=== PATIENT | female | born 1990 | race Caucasian/White ===

== ENCOUNTER 2017-10-02 20:17 | Inpatient (IN) | payer BC ==
[~2017-10-02] VITALS: Ht 165.1 cm; Wt 60.8 kg
[2017-10-02 20:18] VITALS: BP 155/87
--- NOTE | 2017-10-02 20:45 | NUR ---
TO ER BED 11
--- NOTE | 2017-10-02 21:01 | NUR ---
Patient being evaluated by at bedside.
--- NOTE | 2017-10-02 21:02 | NUR ---
27Y/F PT. PRESENTS TO ED WITH C/O ABDOMINAL PAIN X2 DAYS. ALSO STATES N/V, NO DIARRHEA. NO MEDICAL HX. AAO X4, AMBULATORY WITH STAEDY GAIT. RESPIRATIONS ROOM AIR, EVEN AND UNLABORED. SKIN WARM AND DRY. ABDOMEN SOFT AND NON-TENDER, C/O PAIN 10/. VSS, ER MD MADE AWARE OF PT. STATUS.
[2017-10-02] MEDS ORDERED: NACL 0.9% 1,000 ML IV ONE (21:04)
[2017-10-02] MEDS ORDERED: ONDANSETRON 4 MG/2 ML VIAL IVP ONE (21:05)
[2017-10-02] MEDS ORDERED: KETOROLAC 30 MG/ML VIAL IVP ONE (21:05)
--- NOTE | 2017-10-02 21:15 | NUR ---
PT. TAKEN TO CT
[2017-10-02 21:26] LABS: BASOPHILS # (AUTO) 0.6 K/uL (0.00-0.22); EOSINOPHILS # (AUTO) 0.2 K/uL (0-0.4); EOSINOPHILS % (AUTO) 1.1 % (0.0-4.0); HEMATOCRIT 35.7 % (36-48); HEMOGLOBIN 12.3 g/dL (12.0-16.0); LYMPHOCYTES # (AUTO) 0.8 K/uL (2.5-16.5); LYMPHOCYTES % (AUTO) 3.9 % (20.5-51.1); MEAN CORPUSCULAR HEMOGLOBIN 33 pg (27-31); MEAN CORPUSCULAR HGB CONC 35 g/dL (33-37); MEAN CORPUSCULAR VOLUME 96 fL (80-94); MONOCYTES # (AUTO) 0.6 K/uL (0.8-1.0); NEUTROPHILS # (AUTO) 17.2 K/uL (1.8-7.7); PLATELET COUNT (AUTO) 254 K/uL (140-450); RED BLOOD CELL COUNT(AUTO) 3.73 MIL/uL (4.20-5.40); WHITE BLOOD COUNT (AUTO) 19.4 K/uL (4.8-10.8)
--- NOTE | 2017-10-02 21:30 | NUR ---
PT. BACK FROM CT
[2017-10-02 21:37] LABS: APPEARANCE,URINE SL CLOUDY (CLEAR); BILIRUBIN,URINE NEGATIVE (NEGATIVE); BLOOD, URINE 3+ (NEGATIVE); COLOR,URINE YELLOW (YELLOW); LEUKOCYTE ESTERASE ,URINE 1+ (NEGATIVE); NITRITE, URINE NEGATIVE (NEGATIVE); UGLUCOSE NEGATIVE (NEGATIVE)
[2017-10-02 21:40] LABS: ALBUMIN 3.4 g/dL (3.4-5.0); ANION GAP 14.2 (8-16); CARBON DIOXIDE 23.5 mmol/L (21-32); CREATININE 0.8 mg/dL (0.6-1.3); POTASSIUM 3.7 mmol/L (3.5-5.1); TOTAL BILIRUBIN 0.5 mg/dL (0.0-1.0)
[2017-10-02 21:40] LABS: RBC,URINE 3-10 (FEW) /HPF (0-5); WBC,URINE TOO MANY TO COUNT /HPF (0-5)
[2017-10-02] MEDS ORDERED: MORPHINE SULFATE 2 MG/ML SYR IVP ONE (22:35)
[2017-10-02] MEDS: NACL 0.9% 1,000 ML IV SCH (22:44)
[2017-10-02] MEDS ORDERED: HYDROcodone/APAP 7.5/325 MG 1 TAB PO PRN (22:45)
[2017-10-02] MEDS ORDERED: cefTRIAXone 1,000 MG VIAL ONE (22:47)
--- NOTE | 2017-10-02 22:53 | NUR ---
EKG NOT DONE, PATIENT STILL IN ER
--- NOTE | 2017-10-02 23:00 | NUR ---
Patient will be admitted to care of . Admited to TELEMETRY. Will go to [id number]. Belongings list completed. Report to [facility].
[2017-10-02 23:06] LABS: PROTHROMBIN TIME 9.5 secs (10.8-13.4)
[2017-10-02 23:06] LABS: BARBITURATE, URINE NEG. ng/ml (NEG <=200); BENZODIAZEPINE, URINE NEG. ng/mL (NEG <=200); CANNABINOID, URINE POS. ng/mL (NEG <=50); COCAINE, URINE NEG. ng/mL (NEG <=300); OPIATE, URINE NEG. ng/mL (NEG <=2000); PHENCYCLIDINE SCREEN,URINE NEG. ng/mL (NEG <=25)
--- NOTE | 2017-10-02 23:10 | NUR ---
PT ARRIVED FROM ER VIA GURNEY. PT IA AWAKE, ALERT, ORIENTED X4, ON ROOM AIR. IV ACCESS IS PATENT AND ASYMPTOMATIC. NO SIGNS OF ACUTE DISTRESS. BOYFRIEND AT BEDSIDE. PLAN OF CARE DISCUSSED, PT VERBALIZED UNDERSTANDING. BED IN LOW POSITION, BILATERAL HALF SIDE RAILS UP, CALL LIGHT WITHIN REACH, WILL CONTINUE TO MONITOR.
[2017-10-02 23:15] LABS: CHOL/HDL RATIO 1.9 (1-4.5); FREE T4 (FREE THYROXINE) 0.82 ng/dL (0.76-1.46); MAGNESIUM 1.8 mg/dL (1.8-2.4); PHOSPHORUS 1.8 mg/dL (2.5-4.9); THYROID STIMULATING HORMONE 1.21 uIU/mL (0.34-3.74)
[2017-10-02] MEDS ORDERED: MORPHINE SULFATE 2 MG/ML SYR IVP PRN (23:30)
[2017-10-02] MEDS ORDERED: NORE0.3520 PO (23:34)
[2017-10-02] MEDS ORDERED: LORazepam 2 MG/ML VIAL IM/IVP PRN (23:35)
[2017-10-02] MEDS: ACETAMINOPHEN 325 MG TAB PO PRN (23:35)
--- NOTE | 2017-10-02 23:36 | NUR ---
PT STATES SHE HAS A HEADACHE. TYLENOL 650MG GIVEN FOR HEADACHE. PT TOLERATED WELL, WILL CONTINUE TO MONITOR.
[2017-10-03] VITALS (7 sets, daily range): BP systolic 105–127; BP diastolic 59–72
[2017-10-03] MEDS ORDERED: VENL150C1 PO ×2 (00:05→10:49)
[2017-10-03] MEDS: LACTOBACILLUS RHAMNOSUS GG 1 EACH CAP PO SCH ×2 (00:32→08:04)
[2017-10-03] MEDS ORDERED: HYDROmorphone 1 MG/ML AMP IVP SCH (01:30)
[2017-10-03] MEDS: ACETAMINOPHEN 325 MG TAB PO PRN ×2 (04:20→14:12)
--- NOTE | 2017-10-03 04:21 | NUR ---
PT ORAL TEMPERATURE IS 100.9 FAHRENHEIT. PT WAS GIVEN ACETAMINOPHEN 650MG AND COOLING MEASURES. PT TOLERATED WELL. WILL REASSESS AND CONTINUE TO MONITOR.
--- NOTE | 2017-10-03 05:24 | NUR ---
REASSESSED PT ORAL TEMPERATURE, IT'S NOW 100.0 FAHRENHEIT. PT SHOWS NO SIGNS OF ACUTE DISTRESS, WILL CONTINUE TO MONITOR.
--- NOTE | 2017-10-03 06:17 | NUR ---
PT STATES SHE STILL HAS A HEADACHE, NOT RELIEVED BY PAIN MEDS. ASKED TO SPEAK TO DR. MANZO. NOTIFIED DR. MANZO.
[2017-10-03] MEDS: NACL 0.9% 1,000 ML IV SCH ×3 (06:30→21:39)
--- NOTE | 2017-10-03 07:10 | NUR ---
ENDORSED PT TO AM NURSE FOR CONTINUITY OF CARE. PT IN STABLE CONDITION.
--- NOTE | 2017-10-03 07:30 | NUR ---
RECEIVED PT IN BED. AWAKE. ALERT ORIENTEDX4. BOYFRIEND AT BEDSIDE. NO SOB NOTED. COMPLAINS OF PAIN 08/08, AND WOULD WANT TO SEE THE DOCTOR. PT AMBULATORY. SAFETY PRECAUTION IN PLACE. CALL LIGHT WITHIN REACH. WILL LET MD KNOW.
--- NOTE | 2017-10-03 07:39 | NUR ---
DR. ADAM MADE AWARE THAT PT COMPLAINS OF HEADACHE 08/08 AND THE PAIN MEDICATION DILAUDID THAT WAS GIVEN AT NIGHT WASN'T EFFECTIVE PER PT REPORT. PT VERBALIZED SHE DOESN'T HAVE ABDOMINAL PAIN ANYMORE BUT ITS JUST THE HEADACHE THAT BOTHERS HER NOW. DR. ADAM TO SEE PT.
[2017-10-03 07:52] LABS: CARBON DIOXIDE 22.7 mmol/L (21-32); CREATININE 0.9 mg/dL (0.6-1.3); POTASSIUM 3.7 mmol/L (3.5-5.1)
[2017-10-03 07:54] LABS: HEMATOCRIT 30.9 % (36-48); HEMOGLOBIN 10.7 g/dL (12.0-16.0); MEAN CORPUSCULAR HEMOGLOBIN 33 pg (27-31); MEAN CORPUSCULAR HGB CONC 35 g/dL (33-37); MEAN CORPUSCULAR VOLUME 95 fL (80-94); PLATELET COUNT (AUTO) 234 K/uL (140-450); RED BLOOD CELL COUNT(AUTO) 3.25 MIL/uL (4.20-5.40); RED CELL DISTRIBUTION WIDTH 12.2 % (11.6-13.7); WHITE BLOOD COUNT (AUTO) 17.5 K/uL (4.8-10.8)
[2017-10-03] MEDS ORDERED: SUMAtriptan 25 MG TAB PO SCH (07:55)
[2017-10-03 07:59] LABS: MAGNESIUM 1.5 mg/dL (1.8-2.4); PHOSPHORUS 2.2 mg/dL (2.5-4.9)
[2017-10-03 08:00] LABS: LYMPHOCYTES % (MANUAL) 6 % (20-46); MONOCYTES % (MANUAL) 4 % (5-12)
[2017-10-03] MEDS: THIAMINE 100 MG TAB PO SCH (08:04)
[2017-10-03] MEDS: FOLIC ACID 1 MG TAB PO SCH (08:04)
[2017-10-03] MEDS: MULTIVITAMIN 1 TAB PO SCH (08:05)
[2017-10-03] MEDS: DOCUSATE SODIUM 100 MG GELCAP PO SCH ×2 (08:05→21:39)
--- NOTE | 2017-10-03 08:15 | NUR ---
RECEIVED CALL FROM PHARMACY REGARDING EFFEXOR ORDER PER PT SHE TAKES 100 MG. PER PHARMACY WE DON'T HAVE 100 MG FOR THE SAID MEDICATION. FAMILY OF PT TO BRING MEDICATION.
[2017-10-03] MEDS: ONDANSETRON 4 MG/2 ML VIAL IVP PRN ×2 (08:26→13:47)
[2017-10-03] MEDS: KETOROLAC 30 MG/ML VIAL IVP PRN ×2 (08:26→17:52)
--- NOTE | 2017-10-03 08:26 | NUR ---
PT HAD VOMITING, YELLOWISH IN COLOR WITH FOOD PARTICLES. MEDICATED PRN ZOFRAN ORDERED.
--- NOTE | 2017-10-03 08:45 | NUR ---
DR. ADAM MADE AWARE THAT PT HAD AN EPISODE OF VOMITING.
[2017-10-03] MEDS ORDERED: VENLAFAXINE XR 75 MG CAPER PO SCH ×2 (09:00→10:59)
[2017-10-03] MEDS ORDERED: NORETHINDRONE 0.35 MG PO SCH (09:00)
--- NOTE | 2017-10-03 09:00 | NUR ---
AFTER TORADOL IVP WAS GIVEN PRN ORDERED FOR PAIN 05/08. PT VERBALIZED SHE STARTS TO HAVE SOME RELIEF. PT WITH BOYFRIEND AT BEDSIDE. PT CALM, IN BED. TRYING TO GET SOME SLEEP.
[2017-10-03] MEDS ORDERED: MAG SULF 2000 MG/WATER PREMIX 50 ML IV SCH (09:30)
--- NOTE | 2017-10-03 11:54 | NUR ---
PT VERBALIZED HER HEADACHE AND ABDOMINAL PAIN IS STARTING TO COME BACK UP AGAIN AND ITS 7. MEDICATED PRN MORPHINE IVP FOR 06/07 PAIN. SOME VISITORS AT BEDSIDE. PT INTERACTING WITH VISITORS. NO SOB NOTED NO SYMPTOMS OF ACUTE DISTRESS NOTED AT THIS TIME.
--- NOTE | 2017-10-03 13:54 | NUR ---
PT HAVING SOME VOMITING EPISODES AGAIN. VERBALIZED SHE IS IN A LOT OF PAIN AND THE PAIN MEDICATION DIDN'T HELP HER MUCH WITH HER HEADACHE. DR. ADAM MADE AWARE AND CAME TO SEE PT.
--- NOTE | 2017-10-03 13:58 | NUR ---
DR. ADAM CAME TO SEE PT, AND WILL PUT IN AN ORDER FOR DILAUDID AND SAID TO GIVE TYLENOL ORDERED WELL. BECAUSE PT HAVING SOME CHILLS. WILL CHECK VITAL SIGNS AND WILL MEDICATE ORDERED. AND WILL FOLLOW UP WITH CT SCAN OF HEAD WITHOUT CONTRAST.
[2017-10-03] MEDS: HYDROmorphone 1 MG/ML AMP IVP PRN ×2 (14:13→21:46)
--- NOTE | 2017-10-03 14:17 | NUR ---
FOLLOWED UP WITH RADIOLOGY DEPT FOR CT SCAN OF HEAD WITHOUT CONTRAST SPOKE WITH MARGARET. SHE SAID THAT THE TECH WILL BE HERE IN A LITTLE BIT.
--- NOTE | 2017-10-03 14:31 | NUR ---
RECEIVED A CALL FROM [facility] REGARDING NORETHINDRON 0.35MG HOME MED OF PT IF PT'S FAMILY CAN BRING PT'S OWN MED. ASKED PT AND SHE SAID SHE WILL NOT BE TAKING THAT MEDICATION THIS WEEK. PHARMACIST MADE AWARE.
--- NOTE | 2017-10-03 14:43 | NUR ---
RECEIVED A CALL FROM [facility] FROM LAB, FOR A SECOND LACTIC ACID ORDER FOR PT IS QUALIFIED FOR SEVER SEPSIS. DR. ADAM MADE AWARE AND TO PUT AN ORDER.
--- NOTE | 2017-10-03 14:52 | NUR ---
PER PT. THE DILAUDID HELPED WITH HER ABDOMINAL PAIN BUT NOT THE HEADACHE. FOLLOWED UP WITH CT SCAN OF HEAD.
--- NOTE | 2017-10-03 15:30 | NUR ---
MARTELL FROM RADIOLOGY DEPT CAME TO MAILING MANAGER PT FOR CT SCAN OF HEAD WITHOUT CONTRAST.
--- NOTE | 2017-10-03 15:57 | NUR ---
PT CAME BACK FROM CT SCAN.
[2017-10-03] MEDS: SODIUM PHOS / POTASSIUM PHOS 1 PKT PDR PO SCH (16:35)
--- NOTE | 2017-10-03 16:52 | NUR ---
X-RAY TECH SADIE CAME TO MATE RELIEF PT FOR XRAY OF CERVICAL SPINE. PT AWARE.
--- NOTE | 2017-10-03 17:10 | NUR ---
PT CAME BACK FROM XRAY ON STABLE CONDITION.
--- NOTE | 2017-10-03 17:48 | NUR ---
DR. ADAM MADE AWARE THAT PT HAS BEEN THROWING UP. AND NOT ABLE TO TOLERATE REGULAR DIET. MD TO SEE PT AND PUT IN AN ORDER.
--- NOTE | 2017-10-03 18:32 | NUR ---
PT KEPT CLEAN, DRY, AND COMFORTABLE, NEEDS ATTENDED. FAMILY AT BEDSIDE. NO SOB NOTED. PAIN ON ABDOMEN SUBSIDING. WILL ENDORSE TO NEXT SHIFT, PT ON STABLE CONDITION, FOR CONTINUITY OF CARE.
[2017-10-03] MEDS ORDERED: diphenhydrAMINE 50 MG/ML VIAL IVP SCH (18:50)
[2017-10-03] MEDS ORDERED: METOCLOPRAMIDE 10 MG/2 ML INJ VIAL IVP SCH (18:50)
--- NOTE | 2017-10-03 19:35 | NUR ---
RECEIVED REPORT FROM AM NURSE. PT IS RESTING IN BED, FAMILY AT BEDSIDE. ON ROOM AIR. IV ACCESS IS INTACT, PATENT, AND ASYMPTOMATIC, RUNNING NS. NO SIGNS OF ACUTE DISTRESS, BOWEL SOUNDS ACTIVE ON ALL FOUR QUADRANTS. SKIN COLOR APPROPRIATE TO ETHNICITY, PT DENIES ANY PAIN AT THIS TIME. PT IS AMBULATORY WITH BP. PLAN OF CARE DISCUSSED, PT VERBALIZED UNDERSTANDING. BED IN LOW POSITION, BILATERAL HALF SIDE RAILS UP, CALL LIGHT WITHIN REACH, WILL CONTINUE TO MONITOR.
[2017-10-04] VITALS: BP 93/62
--- NOTE | 2017-10-04 02:30 | NUR ---
PT IS SLEEPING, EASY TO AROUSE. NO SIGNS OF ACUTE DISTRESS. BED IN LOW POSITION, BILATERAL HALF SIDE RAILS UP, CALL LIGHT WITHIN REACH, WILL CONTINUE TO MONITOR.
[2017-10-04] MEDS: HYDROmorphone 1 MG/ML AMP IVP PRN ×4 (02:58→19:46)
[2017-10-04 04:00] VITALS: BP 107/69
--- NOTE | 2017-10-04 05:33 | NUR ---
PT IS AWAKE, RESTING IN BED. NO SIGNS OF ACUTE DISTRESS. DENIES ANY PAIN AT THIS TIME. BED IN LOW POSITION, BILATERAL HALF SIDE RAILS UP, CALL LIGHT WITHIN REACH, WILL CONTINUE TO MONITOR.
[2017-10-04 06:18] LABS: HEMATOCRIT 29.1 % (36-48); HEMOGLOBIN 9.7 g/dL (12.0-16.0); MEAN CORPUSCULAR HEMOGLOBIN 32 pg (27-31); MEAN CORPUSCULAR HGB CONC 33 g/dL (33-37); MEAN CORPUSCULAR VOLUME 97 fL (80-94); PLATELET COUNT (AUTO) 213 K/uL (140-450); RED CELL DISTRIBUTION WIDTH 12.1 % (11.6-13.7); WHITE BLOOD COUNT (AUTO) 13.9 K/uL (4.8-10.8)
[2017-10-04 06:43] LABS: ANION GAP 11.2 (8-16); CARBON DIOXIDE 25.3 mmol/L (21-32); CREATININE 0.7 mg/dL (0.6-1.3); POTASSIUM 3.5 mmol/L (3.5-5.1)
[2017-10-04 06:46] LABS: LYMPHOCYTES % (MANUAL) 8 % (20-46); MONOCYTES % (MANUAL) 10 % (5-12)
[2017-10-04 06:50] LABS: PHOSPHORUS 2.1 mg/dL (2.5-4.9)
--- NOTE | 2017-10-04 07:30 | NUR ---
ENDORSED PT TO AM NURSE FOR CONTINUITY OF CARE. PT IS IN STABLE CONDITION.
--- NOTE | 2017-10-04 07:31 | NUR ---
RECEIVED REPORT FROM SUPERINTENDENT TESTS NURSE. PATIENT IN STABLE CONDITION, NO DISTRESS NOTED. RESPIRATIONS EVEN, UNLABORED, ON ROOM AIR. DENIES ANY PAIN AT THIS TIME. COMPLAINTS OF A SMALL HEADACHE. AAOX4, SKIN COLOR APPROPRIATE TO ETHNICITY, WARM TO TOUCH, NO WOUND/LESIONS NOTED THROUGHOUT BODY. IV IS INTACT, PATIENT, AND INFUSING. ABDOMEN SOFT, NON-DISTENDED. LUNGS CTA ON ALL LOBES. PLAN OF CARE REVIEWED WITH PATIENT. PATIENT VERBALIZED UNDERSTANDING. SAFETY MEASURES IN PLACE, CALL LIGHT WITHIN REACH, BED RAILS UPX2. WILL CONTINUE TO MONITOR.
[2017-10-04 08:00] VITALS: BP 122/72
--- NOTE | 2017-10-04 08:50 | NUR ---
PATIENT HAS BEEN SCREENED AND CATEGORIZED MODERATE NUTRITION RISK. PATIENT WILL BE SEEN WITHIN 3-5 DAYS OF ADMISSION. 10/05/17-10/07/[address]
[2017-10-04] MEDS ORDERED: VENLAFAXINE XR 75 MG CAPER PO SCH (09:00)
[2017-10-04] MEDS: THIAMINE 100 MG TAB PO SCH (09:00)
[2017-10-04] MEDS: MULTIVITAMIN 1 TAB PO SCH (09:00)
[2017-10-04] MEDS: VENLAFAXINE XR 75 MG CAPER PO SCH (09:01)
[2017-10-04] MEDS: CYCLOBENZAPRINE 10 MG TAB PO SCH ×3 (09:01→16:00)
[2017-10-04] MEDS: DOCUSATE SODIUM 100 MG GELCAP PO SCH ×2 (09:01→20:02)
[2017-10-04] MEDS: CALCIUM CARBONATE 500 MG TAB PO SCH (09:01)
[2017-10-04] MEDS: LACTOBACILLUS RHAMNOSUS GG 1 EACH CAP PO SCH (09:01)
[2017-10-04] MEDS: SODIUM PHOS / POTASSIUM PHOS 1 PKT PDR PO SCH ×3 (09:02→15:34)
[2017-10-04] MEDS: ACETAMINOPHEN 325 MG TAB PO PRN ×2 (09:02→19:46)
[2017-10-04] MEDS: FOLIC ACID 1 MG TAB PO SCH (09:04)
--- NOTE | 2017-10-04 09:20 | NUR ---
PATIENT LYING IN BED WITH COMPLAINTS OF SEVERE HEADACHE AND PAIN ON NECK AREA RADIATING DOWN TO RIGHT HIPS. MEDICATED WITH DILAUDID. MEDICATIONS DUE GIVEN. TYLENOL GIVEN DUE TO INCREASED TEMP OF 101.3. DENIES ANY NAUSEA/VOMITING AT THIS TIME. RESPIRATIONS EVEN, UNLABORED, ON ROOM AIR. IV INTACT, PATENT, AND INFUSING. SAFETY MEASURES IN PLACE, CALL LIGHT WITHIN REACH. WILL CONTINUE TO MONITOR.
--- NOTE | 2017-10-04 10:50 | NUR ---
PATIENT LYING IN BED WITH FAMILY MEMBER AT BEDSIDE. NO DISTRESS NOTED. REPORTS HEADACHE AND NECK PAIN HAS GOTTEN MUCH BETTER. DENIES ANY NAUSEA/VOMITING. WILL CONTINUE TO MONITOR.
--- NOTE | 2017-10-04 12:15 | NUR ---
PATIENT AMBULATED TO BATHROOM AND BACK WITH STEADY GAIT AND SUPERVISION BY FAMILY MEMBER AT BEDSIDE. NO DISTRESS NOTED. DENIES ANY PAIN OR HEADACHES AT THIS TIME. DENIES ANY NAUSEA/VOMITING. PATIENT REPORTS FEELING FATIGUE. MEDICATIONS DUE GIVEN. IV INTACT, PATENT AND INFUSING. SAFETY MEASURES IN PLACE, CALL LIGHT WITHIN REACH. WILL CONTINUE TO MONITOR.
--- NOTE | 2017-10-04 14:16 | NUR ---
PATIENT IS SLEEPING. NO DISTRESS NOTED. RESPIRATIONS EVEN, UNLABORED, ON ROOM. SKIN COLOR APPROPRIATE TO ETHNICITY. SAFETY MEASURES IN PLACE, CALL LIGHT WITHIN REACH. WILL CONTINUE TO MONITOR.
[2017-10-04] MEDS: NACL 0.9% 1,000 ML IV SCH ×3 (14:40→23:53)
--- NOTE | 2017-10-04 14:46 | NUR ---
CM NOTE SPOKE WITH NERIS OF [facility] PH# [phone] OPTION 6, PER NERIS APPROVED FOR 2 DAYS REF# [id number]
[2017-10-04 16:00] VITALS: BP 114/68
--- NOTE | 2017-10-04 17:25 | NUR ---
PATIENT COMPLAINS OF LEFT AC IV SITE LEAKING. REMOVED LEFT AC IV SITE WITH LUMEN COMPLETELY INTACT AND WITH MINIMAL BLOOD. STARTED NEW IV LINE ON RIGHT FOREARM WITH 22 G ON FIRST ATTEMPT. PATIENT TOLERATED PROCEDURES WELL. IV FLUIDS HOOKED UP AND INFUSING. SAFETY MEASURES IN PLACE, CALL LIGHT WITHIN REACH. WILL CONTINUE TO MONITOR.
--- NOTE | 2017-10-04 18:45 | NUR ---
PATIENT LYING IN BED WITH FAMILY MEMBERS AT BEDSIDE. PATIENT ASKING FOR K PAD FOR NECK. REASSURED PATIENT THAT IT IS BEING DELIVERED BY [facility]. SAFETY MEASURES IN PLACE, CALL LIGHT WITHIN REACH. WILL CONTINUE TO MONITOR.
--- NOTE | 2017-10-04 19:20 | NUR ---
GAVE REPORT TO ENROLLMENT SERVICES VICE PRESIDENT NURSE FOR CONTINUITY OF CARE. PATIENT IN STABLE CONDITION.
--- NOTE | 2017-10-04 19:21 | NUR ---
RECEIVED BEDSIDE REPORT FROM DAY SHIFT NURSE, SHREE RN, PT AAOX4, NO DISTRESS NOTED, SKIN INTACT, IV TO THE R FA 22G RUNNING NS @100 ML/HR, INFUSING WELL, ALL SAFETY PRECAUTION MET, INITIAL ASSESSMENT DONE, PT RESTING, CALL LIGHT WITHIN REACH, FAMILY BY BEDSIDE, WILL CONTINUE TO MONITOR.
[2017-10-04] MEDS: ONDANSETRON 4 MG/2 ML VIAL IVP PRN (19:46)
[2017-10-04 20:00] VITALS: BP 126/75
[2017-10-04] MEDS ORDERED: DIAZEPAM 5 MG TAB PO PRN (21:15)
--- NOTE | 2017-10-04 21:31 | NUR ---
CALLED DR MANZO, MADE MD AWARE OF PT'S C/O PAIN AND MUSCLE SPASM AT BACK OF NECK, UNRELIEVED BY 0.5MG DILAUDID IVP PRN. PT REPORTS RELIEF WITH FLEXERIL THAT IS SCHEDULED TID IN THE DAY. MD ORDERED VALIUM 5MG PO PRN HS FOR MUSCLE SPASM. ADMINISTERED VALIUM PO PRN ORDERED WITH EDUCATION. PT VERBALIZED UNDERSTANDING, TOLERATED MED WELL. ALL NEEDS MET. SAFETY MEASURES ENSURED. CALL LIGHT WITHIN REACH. WILL CONTINUE TO MONITOR.
--- NOTE | 2017-10-04 23:51 | NUR ---
DUE IVF GIVEN, PT TOLERATED WELL, V/S TAKEN, NO DISTRESS NOTED, CALL LIGHT WITHIN REACH, WILL CONTINUE TO MONITOR.
[2017-10-05] VITALS: BP 105/63
--- NOTE | 2017-10-05 03:31 | NUR ---
CHECKED ON PT, PT SLEEPING, NO DISTRESS NOTED, CALL LIGHT WITHIN REACH, WILL CONTINUE TO MONITOR.
[2017-10-05] MEDS: HYDROmorphone 1 MG/ML AMP IVP PRN ×2 (03:47→08:23)
--- NOTE | 2017-10-05 03:47 | NUR ---
PT C/O OF PAIN, MEDICATED, PT TOLERATED WELL, NO DISTRESS NOTED, CALL LIGHT WITHIN REACH WILL CONTINUE TO MONITOR.
[2017-10-05 06:37] LABS: HEMATOCRIT 27.7 % (36-48); HEMOGLOBIN 9.2 g/dL (12.0-16.0); MEAN CORPUSCULAR HEMOGLOBIN 32 pg (27-31); MEAN CORPUSCULAR HGB CONC 33 g/dL (33-37); MEAN CORPUSCULAR VOLUME 97 fL (80-94); PLATELET COUNT (AUTO) 253 K/uL (140-450); RED BLOOD CELL COUNT(AUTO) 2.87 MIL/uL (4.20-5.40); RED CELL DISTRIBUTION WIDTH 12.3 % (11.6-13.7); WHITE BLOOD COUNT (AUTO) 10.3 K/uL (4.8-10.8)
[2017-10-05 06:54] LABS: CARBON DIOXIDE 25.5 mmol/L (21-32); CREATININE 0.6 mg/dL (0.6-1.3); POTASSIUM 3.5 mmol/L (3.5-5.1)
[2017-10-05 07:06] LABS: MAGNESIUM 1.9 mg/dL (1.8-2.4); PHOSPHORUS 3.4 mg/dL (2.5-4.9)
[2017-10-05 07:07] LABS: LYMPHOCYTES % (MANUAL) 23 % (20-46); MONOCYTES % (MANUAL) 7 % (5-12)
--- NOTE | 2017-10-05 07:15 | NUR ---
ENDORSED PT TO AM NURSEEMMA RN, PT STABLE, NO DISTRESS NOTED, CALL LIGHT WITHIN REACH.
--- NOTE | 2017-10-05 07:27 | NUR ---
RECEIVED PT IN BED. AWAKE. ALERT ORIENTEDX4. NO SOB NOTED. NO SIGNS AND SYMPTOMS OF ACUTE DISCOMFORT NOTED AT THIS TIME. PT AMBULATORY. SAFETY PRECAUTION IN PLACE. CALL LIGHT WITHIN REACH.
[2017-10-05 08:00] VITALS: BP 124/84
[2017-10-05] MEDS: CYCLOBENZAPRINE 10 MG TAB PO SCH (08:22)
[2017-10-05] MEDS: CALCIUM CARBONATE 500 MG TAB PO SCH (08:22)
[2017-10-05] MEDS: LACTOBACILLUS RHAMNOSUS GG 1 EACH CAP PO SCH (08:22)
[2017-10-05] MEDS: THIAMINE 100 MG TAB PO SCH (08:22)
[2017-10-05] MEDS: DOCUSATE SODIUM 100 MG GELCAP PO SCH (08:22)
[2017-10-05] MEDS: MULTIVITAMIN 1 TAB PO SCH (08:22)
[2017-10-05] MEDS: VENLAFAXINE XR 75 MG CAPER PO SCH (08:22)
[2017-10-05] MEDS: FOLIC ACID 1 MG TAB PO SCH (08:22)
[2017-10-05] MEDS ORDERED: CIPR500T4 PO (08:30)
[2017-10-05] MEDS ORDERED: CYCL10TA14 PO (08:30)
[2017-10-05] MEDS ORDERED: LACT10CA PO (08:30)
[2017-10-05] MEDS ORDERED: DOCU-299 PO (08:30)
[2017-10-05] MEDS: NACL 0.9% 1,000 ML IV SCH (10:44)
--- NOTE | 2017-10-05 11:00 | NUR ---
PT AWAKE. ALERT ORIENTEDX4. NO SOB NOTED. NO SIGNS AND SYMPTOMS OF ACUTE PAIN OR DISCOMFORT NOTED AT THIS TIME. MOTHER AT BEDSIDE.
[2017-10-05 11:08] VITALS: BP 126/78
--- NOTE | 2017-10-05 11:43 | NUR ---
DISCHARGE INSTRUCTIONS AND HEALTH TEACHINGS GIVEN AND EXPLAINED TO PT. PT VERBALIZED UNDERSTANDING AND SIGNED DISCHARGE PAPERS. REMINDED TO GO TO DOCTOR'S APPOINTMENT SCHEDULED ON DISCHARGE PAPER. PROVIDED EXCUSE FROM WORK FORM PER PT'S REQUEST. NO SOB NOTED. DENIES ANY PAIN OR DISCOMFORT AT THIS TIME. MEDICATION LIST DISCUSSED TO PT. PER PT SHE WOULD WANT TO HAVE A PRESCRIPTION FOR PAIN MEDICATION. DR. PIERRE MADE AWARE AND TO GIVE AN ORDER. IV CANNULA REMOVED, AND INTACT. NAME ARMBAND REMOVED.
--- NOTE | 2017-10-05 11:55 | NUR ---
PROVIDED PT WITH PRESCRIPTION FOR PAIN MEDICATION BY DR. PIERRE. PT WHEELED OUT ASSISTED BY [place]QUILLE WITH PT'S MOTHER GOING TO THE HOSPITAL PARKING LOT TO THEIR PRIVATE OWNED VEHICLE. NO SOB NOTED. DENIES ANY PAIN OR DISCOMFORT AT THIS TIME. PT DISCHARGED ON STABLE CONDITION.
[2017-10-06] MEDS ORDERED: cefTRIAXone 1,000 MG in NACL 0.9% 50 ML IV SCH (09:00)
== END 2017-10-05 11:55 | disposition home or self-care (01) | DRG 689 ==
LOC: MED 20:17 → EDBD 20:17 → MTU 22:47
PROVIDERS: ADMIT Student in an Organized Health Care Education/Training Program; ATTEND Student in an Organized Health Care Education/Training Program
DX: N10 Acute pyelonephritis (principal); E43 Unspecified severe protein-calorie malnutrition; N17.0 Acute kidney failure with tubular necrosis; E87.1 Hypo-osmolality and hyponatremia; N13.30 Unspecified hydronephrosis; F41.9 Anxiety disorder, unspecified; F10.20 Alcohol dependence, uncomplicated; E83.42 Hypomagnesemia; E83.39 Other disorders of phosphorus metabolism; E83.51 Hypocalcemia; N80.9 Endometriosis, unspecified; F17.210 Nicotine dependence, cigarettes, uncomplicated; F12.90 Cannabis use, unspecified, uncomplicated; D64.9 Anemia, unspecified
CPT/HCPCS: 36415; 70450; 71010; 72050; 80048; 80053; 80305; 81001; 81025; 82040; 82150; 83036; 83605; 83690; 83735; 84100; 84439; 84443; 85025; 85610; 85730; 87040; 87081; 87086; 87186; 93005; 96361; 96365; 96375; 99285; G0482; J0696; J1170; J1200; J1885; J2270; J2405; J2765; J3475; J7030; J7060; Q0092